=== PATIENT | female | born 1975 | race Caucasian/White ===

== ENCOUNTER 2020-10-25 13:51 | Observation (INO) ==
[2020-10-25] MEDS ORDERED: CeFAZolin Syr 2,000MG/20 ML 2,000 MG/20 ML SYRINGE IVPB ONE (14:12)
[2020-10-25] MEDS ORDERED: Ringers Solution, Lactated 1,000 ML IVC SCH ×2 (14:15→15:15)
[2020-10-25] MEDS ORDERED: Scopolamine Patch 1.5 MG PATCH.TD72 TD ONE (15:04)
[2020-10-25] MEDS ORDERED: *HR* OxyCODONE Immed Rel 5 MG TABLET PO PRN ×2 (15:04→19:55)
[2020-10-25] MEDS ORDERED: Ondansetron 4 MG/2 ML VIAL IVP PRN (15:04)
[2020-10-25] MEDS ORDERED: Ketorolac 30 MG/ML VIAL IVP PRN (15:04)
[2020-10-25] MEDS ORDERED: *HR* HYDROmorphone PF 0.5 MG/0.5 ML SYRINGE IVP PRN (15:04)
[2020-10-25] MEDS ORDERED: *HR* Propofol 200 MG/20 ML VIAL IVP ONE (15:26)
[2020-10-25] MEDS ORDERED: Ondansetron 4 MG/2 ML VIAL ONE (15:26)
[2020-10-25] MEDS ORDERED: Lidocaine -MPF 2% 2 ML VIAL ONE (15:26)
[2020-10-25] MEDS ORDERED: *HR* FentaNYL (PF) 100 MCG/2 ML VIAL ONE (15:26)
[2020-10-25] MEDS ORDERED: Lidocaine/EPI 1:200k 1% PF 10 ML VIAL ONE (15:54)
[2020-10-25] MEDS ORDERED: EPHEDrine 50 MG/ML VIAL ONE (16:32)
[2020-10-25] MEDS ORDERED: Lidocaine HCL 4 ML Topical Solution (Laryng-O-Jet Kit Sterile Pak) TP ONE (16:46)
[2020-10-25] MEDS ORDERED: *HR* HYDROMORPHONE 2 MG/ML VIAL ONE (18:05)
[2020-10-25] MEDS ORDERED: Naloxone 0.4 MG/ML INJ IVP PRN (19:55)
[2020-10-25] MEDS ORDERED: Ondansetron ODT 4 MG TAB.RAPDIS SL PRN (19:55)
[2020-10-25] MEDS ORDERED: Ibuprofen 400 MG TABLET PO PRN (19:55)
[2020-10-25] MEDS ORDERED: Acetaminophen 325 MG TABLET PO PRN (19:55)
[2020-10-25] MEDS ORDERED: 0.9 % Sodium Chloride 1,000 ML ONE (20:52)
[2020-10-25] MEDS: *HR* HYDROcodone/Acet 5/325 mg TABLET PO PRN (21:18)
[2020-10-25] MEDS: 0.9 % Sodium Chloride 1,000 ML IVC SCH (23:20)
[2020-10-25] MEDS: ceFAZolin 2,000 MG in 0.9 % Sodium Chloride 100 ML IVPB SCH (23:26)
[2020-10-26 01:35] LABS: Hematocrit 34.5 % (35.3-44.9); Mean Corpuscular HGB Conc 31.9 g/dL (31.6-35.5); Mean Corpuscular Hemoglobin 28.3 pg (28.0-33.3); Mean Corpuscular Volume 88.7 fL (83.0-100.0); Mean Platelet Volume 8.8 fL (9.4-12.4); Platelet Count 389 K/mcL (140-400); Red Blood Count 3.89 M/mcL (3.82-4.97); Red Cell Distribution Width 13.7 % (11.5-14.5); White Blood Count 18.8 K/mcL (4.3-11.1)
[2020-10-26 01:47] LABS: BUN/Creatinine Ratio 14 (6-26); Blood Urea Nitrogen 8 mg/dL (6-20); Calcium 8.8 mg/dL (8.6-10.3); Carbon Dioxide 25 mEq/L (23-29); Chloride 99 mEq/L (98-107); Glucose 131 mg/dL (70-105); Osmolality,Calculated 276 (280-300); Sodium 133 mEq/L (136-145); eGFR For African Americans > 60 (> 60); eGFR For Non-African Americans > 60 (> 60)
[2020-10-26] MEDS: *HR* HYDROcodone/Acet 5/325 mg TABLET PO PRN ×2 (03:20→09:44)
[2020-10-26] MEDS: 0.9 % Sodium Chloride 1,000 ML IVC SCH (06:24)
[2020-10-26 07:08] VITALS: BP 110/70
[2020-10-26] MEDS: ceFAZolin 2,000 MG in 0.9 % Sodium Chloride 100 ML IVPB SCH (09:30)
== END 2020-10-26 10:30 | disposition home or self-care (01) ==
LOC: SAMDAY 13:51 → 3NENU 13:51
PROVIDERS: ADMIT Orthopaedic Surgery Hand Surgery; ATTEND Orthopaedic Surgery Hand Surgery